=== PATIENT | male | born 1970 | race Caucasian/White ===

== ENCOUNTER 2019-04-16 15:29 | Emergency (ER) | payer OTHER ==
[~2019-04-16] VITALS: Ht 170.2 cm; Wt 87.1 kg
[2019-04-16 16:05] VITALS: Ht 170.2 cm; Wt 87.1 kg
[2019-04-16 16:28] LABS: microscopic required? YES; urine erythrocyte 3+ (NEGATIVE)
[2019-04-16 16:33] LABS: BASOPHIL % 0.8 % (0-2); PLATELET COUNT 187 x10^3mcL (130-400); RED CELL DISTRIBUTION WIDTH 12.4 % (11.5-14.5)
[2019-04-16 16:44] LABS: ALKALINE PHOSPHATASE 104 U/L (46-116); BILIRUBIN TOTAL 0.65 mg/dL (0.20-1.00); CALCIUM 8.1 mg/dL (8.5-10.1); CARBON DIOXIDE 26.9 mmol/L (21-32); CHLORIDE SERUM 104 mmol/L (98-107); GFR1 > 60 mL/min; SODIUM SERUM 139 mmol/L (136-145)
[2019-04-16 17:09] LABS: GLUCOSE SERUM 155 mg/dL (74-106); TOTAL PROTEIN, SERUM 8.1 g/dL (6.4-8.2)
[2019-04-16 17:25] LABS: ALT/SGPT 23 U/L (16-63)
[2019-04-16 17:39] LABS: AST/SGOT 25 U/L (15-37)
[2019-04-16 18:59] VITALS: BP 146/96
== END 2019-04-16 18:59 | disposition home or self-care (01) ==
LOC: ED 15:29
PROVIDERS: Emergency Medicine
DX: N20.0 Calculus of kidney (principal)
CPT/HCPCS: J1885; J7030

== ENCOUNTER 2019-05-10 20:01 | Emergency (ER) | payer OTHER ==
[~2019-05-10] VITALS: Ht 172.7 cm; Wt 85.8 kg
[2019-05-10 20:21] VITALS: Ht 172.7 cm; Wt 85.8 kg
[2019-05-10 20:50] LABS: BASOPHIL % 0.4 % (0-2); PLATELET COUNT 190 x10^3mcL (130-400); RED CELL DISTRIBUTION WIDTH 12.7 % (11.5-14.5)
[2019-05-10 21:19] LABS: CARBON DIOXIDE 25.6 mmol/L (21-32); CHLORIDE SERUM 104 mmol/L (98-107); CREATININE SERUM 1.3 mg/dL (0.7-1.3); GFR1 > 60 mL/min; GLUCOSE SERUM 166 mg/dL (74-106); POTASSIUM SERUM 4.2 mmol/L (3.5-5.1); SODIUM SERUM 141 mmol/L (136-145)
[2019-05-10 21:24] LABS: ALBUMIN 4.3 g/dL (3.4-5.0); ALKALINE PHOSPHATASE 88 U/L (46-116); ALT/SGPT 32 U/L (16-63); AST/SGOT 19 U/L (15-37); BILIRUBIN TOTAL 0.8 mg/dL (0.20-1.00)
[2019-05-10 21:31] LABS: TOTAL PROTEIN, SERUM 8.3 g/dL (6.4-8.2)
[2019-05-10 22:52] VITALS: BP 145/94
== END 2019-05-10 22:52 | disposition home or self-care (01) ==
LOC: ED 20:01
PROVIDERS: Emergency Medicine
DX: N23 Unspecified renal colic (principal); I10 Essential (primary) hypertension; Z87.442 Personal history of urinary calculi
CPT/HCPCS: J1885; J2405; J3010; J7030; Q0092

== ENCOUNTER 2019-08-08 07:05 | Emergency (ER) | payer OTHER ==
[~2019-08-08] VITALS: Ht 175.3 cm; Wt 85.3 kg
[2019-08-08 07:21] VITALS: Ht 175.3 cm; Wt 85.3 kg
[2019-08-08 08:10] LABS: CALCIUM 8.8 mg/dL (8.5-10.1); CARBON DIOXIDE 26.6 mmol/L (21-32); CREATININE SERUM 1.4 mg/dL (0.7-1.3); POTASSIUM SERUM 3.7 mmol/L (3.5-5.1)
[2019-08-08 08:33] LABS: microscopic required? YES; urine erythrocyte NEGATIVE (NEGATIVE)
[2019-08-08 08:36] LABS: PLATELET COUNT 177 x10^3mcL (130-400)
[2019-08-08 08:38] LABS: BASOPHIL % 0 % (0-2)
[2019-08-08 09:22] VITALS: BP 161/100
== END 2019-08-08 09:22 | disposition home or self-care (01) ==
LOC: ED 07:05
PROVIDERS: Emergency Medicine
DX: N20.1 Calculus of ureter (principal)
CPT/HCPCS: J1885; J2405